=== PATIENT | male | born 1985 | race African-American/Black ===

== ENCOUNTER 2025-03-16 20:12 | Emergency (ER) | payer OTHER, SELFPAY ==
[2025-03-16 20:16] VITALS: BP 108/93
[2025-03-16 20:55] LABS: Hematocrit 45.5 % (39.0-52.0); Hemoglobin 16.0 g/dL (13.0-18.0); Mean Corp Hgb Conc. 35.2 g/dL (33.0-37.0); Mean Corpuscular Volume 83.6 fL (80.0-94.0); Platelet Count 298 10^3/uL (130-400); Red Cell Dist. Width 12.5 % (11.5-14.5)
[2025-03-16 21:01] LABS: ALT (SGPT) 46 U/L (0-50); AST (SGOT) 33 U/L (17-59); Albumin 4.5 g/dl (3.5-5.0); Alkaline Phosphatase 123 U/L (38-126); Blood Urea Nitrogen 16 mg/dl (9-20); Calcium 9.6 mg/dl (8.4-10.2); Carbon Dioxide 25 mmol/L (22-30); Chloride 106 mmol/L (98-107); Glucose 97 mg/dl (70-99); Potassium 4.6 mmol/L (3.5-5.1); Sodium 136 mmol/L (135-145); Total Protein 7.2 g/dl (6.3-8.2); eGFR > 60.00
[2025-03-16 21:15] LABS: Troponin I < 0.012 ng/ml
[2025-03-16 21:29] LABS: Nucleated Red Blood Cells % 0 % (-)
[2025-03-17 00:09] VITALS: BMI 34.1
[2025-03-17 00:24] VITALS: BP 150/85
[2025-03-17 00:54] LABS: Troponin I < 0.012 ng/ml
[2025-03-17 01:00] VITALS: BP 145/78
--- NOTE | 2025-03-17 01:18 | ED.GENMED ---
History of Present Illness
General
Chief Complaint: Chest Pain
Source: patient
Exam Limitations: none
Time Seen by Provider: 03/17/25 00:49
Nursing documentation reviewed up to this point in time: agreed with
History of Present Illness
History of Present Illness:
39-year-old male 2 days of sharp pain in the middle of his chest, no nausea vomiting no diaphoresis or sweating, is scheduled to have finger surgery next week was referred to the ER by surgical lead for evaluation prior to his surgery, thinks
he has reflux, has been trying to change his diet, no abdominal pains, no calf pains no history of DVT PE
Past History
Past History
ED Past Medical History: None
ED Past Surgical History: Other (Scheduled for finger surgery)
Social History
Tobacco: Non-smoker
Alcohol: None
Drug: None
Personal:
Living: with family
Employment: Employed
Review of Systems
Review of Systems
All Other Systems: Not applicable
Constitutional: Denies fever
EENT: Reports no symptoms
Respiratory: Denies cough
Cardiac: Reports chest pain
ABD/GI: Reports no symptoms
: Reports no symptoms
Musculoskeletal: Reports no symptoms
Skin: Reports no symptoms
Hematologic/Lymphatic: Reports no symptoms
Phy Exam
Physical Exam
Physical Exam:
Physical Exam
General: no apparent distress, not acutely ill
Neck: No jaundice
Heart: s1/s2 regular rate and rhythm, no murmur. equal radial pulses.
Lungs: no acute respiratory distress. clear bilaterally
Abdomen: Nontender
Neuro: alert and oriented. no focal neurological deficits
Skin: no rash
Psychiatric: well kept. interactive and cooperative
Extremities: no edema. no calf tenderness.
Scores
Heart Score for Chest Pain Patients
STEMI patient?: No
History: Slightly or Non-Suspicious
ECG: Nonspecific Repolarization
Age: </= 45 years
Risk Factors: No Risk Factors
Troponin: </= Normal Limit
Heart Score for Chest Pain Patients: 1
Heart Score Risk: 2.5% MACE over next 6 weeks
Course
Orders/Labs/Results
Orders:
Orders
03/16/25 20:23
Electrocardiogram (*1) Urgent
Reason for Study: Chest Pain
Cardiac Monitoring- Treatment ONCE
EKG- Treatment ONCE
CXR2 [CR Chest - 2 Views ] Urgent
Comment:
Reason For Exam: chest pain
O2 Therapy [RESP] Urgent
Titrate/Wean O2 to maintain O2 sat greater than (%): 90
Special Instructions: Maintain sats >/=90%
Pulse Ox/spot Check [RESP] Urgent
Quantity: 1
Special Instructions: ON ROOM AIR
03/16/25 20:40
Complete Blood Count/With Diff Urgent
Comprehensive Metabolic Panel Urgent
Troponin I Urgent
03/17/25 00:06
EKG [Electrocardiogram (*1)] Urgent
Reason for Study: Chest Pain
EKG- Treatment ONCE
03/17/25 00:19
Troponin I Urgent
03/17/25 01:20
Pantoprazole [Protonix] 40 mg PO NOW STA
Abnormal Lab Results
03/16/25
20:40
Neutrophils % 36.9 L %
(42.2-75.2)
Lymphocytes % 51.3 H %
(20.5-51.1)
03/16/25 20:40
03/16/25 20:40
Vital Signs
Initial and Last Documented VS:
Initial Vital Signs
Temp Pulse Resp BP Pulse Ox
98.3 F 79 16 108/93 96
03/16/25 20:16 03/16/25 20:16 03/16/25 20:16 03/16/25 20:16 03/16/25 20:16
Last Documented Vital Signs
Temp Pulse Resp BP Pulse Ox
98.3 F 85 22 145/78 99
03/16/25 20:16 03/17/25 01:15 03/17/25 01:15 03/17/25 01:00 03/17/25 01:23
MDM/Problems Addressed
Differential Diagnosis Includes:
Reflux, coronary syndrome, doubt PE
MDM/Problems Addressed:
Chest pain
*Radiology
Radiology exam reviewed: preliminary read by ED provider
*Pulse Oximetry
SaO2: 99
Oxygen Mode of Delivery: Room air
Patient hypoxic: no
*EKG
Interpreted by ED Provider?: Yes
Interpretation: normal
Comparison EKG: no comparison EKG present
Heart Rate: 78
Rate: normal
Rhythm: sinus
Ischemia: non-specific ST changes
*Family Resource Coordinator Interpretation
Rate: normal
Interpretation: normal
Heart Rate: 78
*Critical Care Note
Total Time (30-74mins, 75-104mins- exclusive of procedures): Not Applicable
ED Attending Note
-
Portions of this chart may have been created with voice recognition software.� Occasional wrong word or��sound alike� substitutions may have occurred due to the inherent limitations of voice recognition software.
Discharge Plan
Departure
Patient Disposition: Home (Routine Discharge)
Date of Disposition: 03/17/25
Time of Disposition: 01:22
Patient with high blood pressure during this ER visit?: No
Condition: Good
Discharge Problem:
Chest pain
Instructions: Chest Pain PCP Follow Up
Prescriptions:
New
pantoprazole [Protonix] 40 mg tablet,delayed release (DR/EC)
40 mg PO DAILY Qty: 30 0RF
Referrals:
[facility] [Provider Group] - Next open appointment
NONE,* [Family Provider, Internal Medicine]
Interventions
Interventions:
*Risk Screen - Suicide Last Done: 03/16/25 20:16
*General Assessment Last Done: 03/17/25 00:09
*Neglect/Abuse Screening Last Done: 03/17/25 00:09
*ED- Fall Risk Assessment Last Done: 03/17/25 00:09
*ED COVID-19 Vaccine History Last Done: 03/17/25 00:12
*Nursing Disposition Last Done: 03/17/25 01:36
ED- Cardiac Assessment Last Done: 03/17/25 00:36
Discharge Date and Time
Discharge Date/Time: 03/17/25 01:37
Print Language: DANISH
== END 2025-03-17 01:37 | disposition home or self-care (01) ==
LOC: EMR 20:12
PROVIDERS: Emergency Medicine; EMERGENCY PHYSICIAN Emergency Medicine
DX: R07.89 Other chest pain (principal)
CPT/HCPCS: 99283; 71046; 80053; 84484; 85025; 93005

== ENCOUNTER 2025-05-03 17:00 | Outpatient (RCR) | payer OTHER, SELFPAY | END 2025-05-03 23:59 | disposition home or self-care (01) | LOC: ROT 17:00 | PROVIDERS: ATTENDING PHYSICIAN Orthopaedic Surgery; FAMILY PHYSICIAN Internal Medicine | DX: Z47.89 Encounter for other orthopedic aftercare (principal); M66.3 Spontaneous rupture of flexor tendons; M66.342 Spontaneous rupture of flexor tendons, left hand; Z73.6 Limitation of activities due to disability; X58.XXXD Exposure to other specified factors, subsequent encounter | CPT/HCPCS: 97010; 97014; 97018; 97110; 97140; 97166; 97535 ==

== ENCOUNTER 2025-06-01 07:05 | Outpatient (RCR) | payer OTHER, SELFPAY | END 2025-06-01 23:59 | disposition home or self-care (01) | LOC: ROT 07:05 | PROVIDERS: ATTENDING PHYSICIAN Orthopaedic Surgery; FAMILY PHYSICIAN Internal Medicine | DX: Z47.89 Encounter for other orthopedic aftercare (principal); M66.3 Spontaneous rupture of flexor tendons; Z73.6 Limitation of activities due to disability; X58.XXXD Exposure to other specified factors, subsequent encounter; S66.11 Strain of flexor muscle, fascia and tendon of other and unspecified finger at wrist and hand level; X50.1XXD Overexertion from prolonged static or awkward postures, subsequent encounter | CPT/HCPCS: 97018; 97110; 97140; 97535 ==

== ENCOUNTER 2025-06-26 16:49 | Outpatient (RCR) | payer OTHER, SELFPAY | END 2025-06-26 23:59 | disposition home or self-care (01) | LOC: ROT 16:49 | PROVIDERS: ATTENDING PHYSICIAN Orthopaedic Surgery; FAMILY PHYSICIAN Internal Medicine | DX: Z47.89 Encounter for other orthopedic aftercare (principal); M66.3 Spontaneous rupture of flexor tendons; Z73.6 Limitation of activities due to disability; S66.11 Strain of flexor muscle, fascia and tendon of other and unspecified finger at wrist and hand level; X50.1XXD Overexertion from prolonged static or awkward postures, subsequent encounter; X58.XXXD Exposure to other specified factors, subsequent encounter | CPT/HCPCS: 97018; 97110; 97140 ==